=== PATIENT | female | born 1990 | race Hispanic/Latino ===

== ENCOUNTER 2017-01-05 11:43 | Emergency (ER) | payer OTHER, MEDICARE ==
[~2017-01-05] VITALS: Ht 152.4 cm; Wt 81.6 kg
[~2017-01-05 11:43] MED LIST: BACTROBAN OINT.15 GM TOP; BENTYL10 MG PO; CIPRO 250MG250 MG PO; CIPROFLOXACIN500 MG PO; CITALOPRAM HYDR10 MG PO; FLAG500 PO; GABAPENTIN300 MG PO; JUNEL FE 1.5/301 TAB PO; MOTRIN800 MG PO; NITROFURANTOIN100 M3 PO; OLANZAPINE20 MG PO; TRAZODONE100 MG PO; TRIAMCINOL0.1 %/453 TOP
--- NOTE | 2017-01-05 12:47 | ED GI/GU/ABDOMINAL COMPLAINT ---
History of Present Illness General Chief Complaint: Female Urogenital Problems Stated Complaint: PT IS HERE FOR STD AND HAS DISCHARGE & ITCHY Source: patient Exam Limitations: no limitations Vital Signs & Intake/Output Vital Signs & Intake/Output Vital Signs Date Time Temp Pulse Resp B/P Pulse O2 O2 Flow FiO2 Ox Delivery Rate 01/05 1428 98.0 95 16 123/95 99 Room Air 01/05 1359 Room Air 01/05 1153 97.8 104 18 122/88 98 Room Air Allergies Coded Allergies: MDX - Amoxicillin (From AUGMENTIN) (Severe, RASH- ALL OVER BODY 01/30/15) MDX - Clavulanic Acid (From AUGMENTIN) (Severe, RASH 09/20/14) MDX - Sulfamethoxazole (From BACTRIM DS) (Intermediate, ITCHY RASH 09/20/14) MDX - Trimethoprim (From BACTRIM DS) (Intermediate, ITCHY RASH 09/20/14) Reconcile Medications Citalopram Hydrobromide 10 MG TAB 1 TAB PO QAM MENTAL HEALTH (Reported) Ethinyl Estradiol/Norethindr2 (Junel Fe 30 Mcg-75 MG-1.5 MG) 1 TAB TAB 1 TAB PO DAILY CONTROL (Reported) Gabapentin 300 MG CAPSULE 1 CAP PO 4 TIMES/DAY ANXIETY (Reported) Ibuprofen (Motrin) 800 MG TAB 1 TAB PO TID PRN pain Nitrofurantoin Monohydrate/N (Nitrofurantoin Monohydrate & Macrocrystals) 100 MG CAP 1 CAP PO BID UTI (Reported) Olanzapine 20 MG TABLET 1 TAB PO QPM MENTAL HEALTH (Reported) TRAZODONE HCL (Trazodone HCl) 100 MG TABLET 1 TAB PO QPM SLEEP (Reported) Triamcinolone Acetonide (Triamcinolone 0.1% Cream 453 Gm) 15 GM CREAM..G. 1 LD TOP BID PRN RASH Triage Note: COMPLAINS OF WHITE VAGINAL DISCHARGE AND ITCHING THAT STARTED MONDAY. Triage Nurses Notes Reviewed? yes ? N Is pt currently ? No HPI: 26-year-old female history of STD and history of mental illness presents with complaints of mild vaginal discharge and itching. She has no pain. She has no fever or flulike illness no urinary symptoms. She had unprotected sex for the first time in 1 year on Monday and is concerned that she is contracted an STD. She does not know anything about her partner's medical history. She states she is on control pill. She has no urinary symptoms. She has a history of gonorrhea or chlamydia in the past Past History Travel History Traveled to [place] past 21 day No Medical History Any Pertinent Medical History? 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 No Review of Systems Review of Systems Constitutional: Reports: see HPI. EENTM: Reports: no symptoms. Respiratory: Reports: no symptoms. Cardiovascular: Reports: no symptoms. GI: Reports: no symptoms. Genitourinary: Reports: see HPI. Musculoskeletal: Reports: no symptoms. Skin: Reports: no symptoms. Neurological/Psychological: Reports: no symptoms. Hematologic/Endocrine: Reports: no symptoms. Immunologic/Allergic: Reports: no symptoms. All Other Systems: Reviewed and Negative Physical Exam Physical Exam Gastrointestinal: normal bowel sounds, soft, non-tender, no organomegaly Pelvic: normal bimanual exam, no cerv. motion tender, no masses, discharge (MILD PURULENT), JERRY [employer] Comments: Well-developed well-nourished no apparent distress. HEENT: Atraumatic, extraocular motion intact Neck: Supple, no lymphadenopathy Back: Nontender Respiratory: No respiratory distress Extremities: No edema, full range of motion Neuro: Alert and oriented x3 Psych: Mood affect normal, normal memory normal judgment. Skin: Warm and dry, no rash on exposed skin Core Measures ACS in differential dx? No Severe Sepsis Present: No Septic Shock Present: No Progress Differential Diagnosis: AAA, AMI, appendicitis, biliary colic, bowel obstruction , colon cancer, cholecystitis, diverticulitis, ectopic , endometritis, esophageal varices, gastritis, hepatitis, hernia, hemorrhoids, ischemic bowel, inflamm bowel dis, intrauterine , kidney stone, Lenora-Chelly tear, ovarian cyst, ovarian torsion, pancreatitis, PID/cervicitis, peptic ulcer, PUD/ GERD, perforated viscous, SBO, threatened AB, UTI/pyelo Plan of Care: Orders Procedure Date/time Status CULTURE,URINE 01/05 1243 Active TRICHOMONAS 01/05 1243 Complete POTASSIUM HYDROXIDE (PAULINE) 01/05 1243 Complete GENITAL CULTURE 01/05 1243 Active CHLAMYDIA-GC DNA PROBE 01/05 1243 Active URINE 01/05 1243 Complete URINALYSIS 01/05 1243 Complete Laboratory Tests 01/05/17 1252: Urine Color YEL, Urine Clarity HAZY H, Urine pH 6.5, Ur Specific Allen <= 1.005, Urine Protein NEG, Urine Ketones NEG, Urine Nitrite NEG, Urine Bilirubin NEG, Urine Urobilinogen 0.2, Ur Leukocyte Esterase SMALL H, Ur Microscopic SEDIMENT EXAMINED, Urine RBC 1-3, Urine WBC 10-15 H, Ur Epithelial Cells MANY H, Urine Bacteria RARE H, Urine Hemoglobin SMALL H, Urine Glucose NEG, Urine Test NEGATIVE Microbiology 01/05 1310 GENITAL: GC DNA Probe - RECD 01/05 1310 GENITAL: Chlamydia DNA Probe (AMALIA) - RECD 01/05 1310 GENITAL: Trichomonas Preparation - COMP 01/05 1310 GENITAL: Genital Culture - RECD 01/05 1252 URINE ROUT: Urine Culture - RECD 01/05 1243 GENITAL: PAULINE Preparation - COMP Initial ED EKG: none Comments: Concern for STD, unprotected sex, unknown partners history, she is having vaginal discharge on exam. She is given 250 mg of Rocephin IM and Zithromax 1 g by mouth. Cultures were obtained, safe sex practices were discussed. Patient will return with any concerns. Departure Departure Disposition: HOME OR SELF CARE Condition: Stable Clinical Impression Primary Impression: Vaginal discharge Referrals: UNKNOWN (PCP/Family) Additional Instructions: You have been treated for possible gonorrhea and chlamydia infection. We will call you if the other test results come back positive if you need further antibiotics. Please practice safe sex for the next week. Notify your partners if tests come back positive as they will need treatment as well Departure Forms: Customer Survey General Discharge Information
[2017-01-05 14:28] VITALS: BP 123/95
== END 2017-01-05 14:29 ==
LOC: ERH 11:43
DX: N89.8 Other specified noninflammatory disorders of vagina (principal); Z87.42 Personal history of other diseases of the female genital tract
CPT/HCPCS: 87070; 81001; 81025; 87086; 87491; 87591; 96372; J0696